=== PATIENT | female | born 1960 | race Caucasian/White ===

== ENCOUNTER 2019-10-20 19:14 | Emergency (ER) | payer BC ==
[~2019-10-20] VITALS: Ht 162.6 cm; Wt 67.1 kg
[2019-10-20 19:45] VITALS: BP_SYST 147
--- NOTE | 2019-10-20 20:10 | NUR ---
Pt ambulatory to bed 5 for evaluation
--- NOTE | 2019-10-20 20:11 | NUR ---
ER at bedside examining patient.
--- NOTE | 2019-10-20 20:12 | NUR ---
Pt presents to the ER c/o laceration on R ring finger from steak knife x 1 hour ago. Current pain 10/29. No active bleeding while bandaid on R ring finger. Pt axox4.
[2019-10-20] MEDS ORDERED: LIDOCAINE 1% 10 MG/ML, 20 ML MDV INJ ONE (20:30)
--- NOTE | 2019-10-20 20:30 | NUR ---
Laceration irrigated w/ N.S. Tolerated well.
--- NOTE | 2019-10-20 20:39 | NUR ---
Patient has a laceration to R ring finger. applied sutures using sterile technique. Edges well approximated. Site cleansed with NS. Dressing of Bacitrin and serile guaze applied to site. No bleeding noted. Pt tolerated well.
[2019-10-20] MEDS ORDERED: LIDOCAINE 1%, 20 ML MDV 20 ML ONE (20:46)
[2019-10-20] MEDS ORDERED: DIPH-TET-PERTUS Vaccine 0.5 ML VIAL (ADACEL) I.M. ONE (21:30)
[2019-10-20 21:46] VITALS: BP_SYST 147
--- NOTE | 2019-10-20 21:46 | NUR ---
Patient given written and verbal discharge instructions and verbalizes understanding. ER MD discussed with patient the results and treatment provided. Patient in stable condition. ID arm band removed, no active bleeding. Rx of [place] 325mg tab given. Patient educated on pain management and to follow up with PMD. Pain Scale 6/10. Opportunity for questions provided and answered. Medication side effect fact sheet provided.
[2019-10-20] MEDS ORDERED: BACITRACIN 1 GM OINT TP ONE (21:58)
== END 2019-10-20 21:46 | disposition home or self-care (01) ==
LOC: SED 19:14
DX: S61.214A Laceration without foreign body of right ring finger without damage to nail, initial encounter (principal); W26.0XXA Contact with knife, initial encounter; Y93.89 Activity, other specified; Y92.89 Other specified places as the place of occurrence of the external cause; Y99.8 Other external cause status
CPT/HCPCS: 12001; 90471; 90715; 99283; J2001